=== PATIENT | female | born 1965 | race Caucasian/White ===

== ENCOUNTER 2016-07-10 17:36 | Inpatient (IN) | payer BC ==
--- NOTE | ~2016-07-10 | PN ---
Unit #: [id number] #: [id number] Patient: SHILPA OVALLE [id number] [facility] [address] [place] [address] [id number] MR#: [id number] NAME: SHILPA OVALLE ROOM: P204 Age: Sex: F Admission Date: 07/11/2016 : 1965 Attending Physician: Luis Molina M.D. Admitting Physician: Luis Molina M.D. Primary Care Physician: Primary Care Physician Raegan CARRION NOTES DATE 07/17/2016 DISCUSSION Ms. Ovalle is a 50-year-old white female . She was laying in her bed in acute distress and discomfort and vomit tray in front of her and was puking and was stating that her detox protocol fell off and she has not been feeling good and has been getting nausea, vomiting and stomach ache and pains and cramps and has not been able to get up and function or be active to the daily living discomfort and it has been recommended extending the detox protocol at least another day. Will monitor her response and make further adjustments as needed. Dictated by... Garfield Zhu/tia TD: 07/18/2016 09:03 JOB #: [id number] [facility] PROGRESS NOTES Page 1 of 1 X Luis Molina MD X PROGRESS NOTE
--- NOTE | ~2016-07-10 | PN ---
Unit #: [id number] #: [id number] Patient: SHILPA LLAMAS [id number] [facility] [address] [place] [address] [id number] MR#: [id number] NAME: SHILPA LLAMAS. ROOM: P204 Age: 50 Sex: F Admission Date: 07/11/2016 : 1965 Attending Physician: Luis Molina M.D. Admitting Physician: Garfield Zhu PROGRESS NOTES DATE OF SERVICE: 07/18/2016 SUBJECTIVE Ms. Llamas is a 50-year-old white female with substance abuse and mood disorder, who was seen today and chart was reviewed, and case was discussed with the staff. Meanwhile, she has been anxious, withdrawn, and rather seclusive to herself, and appears to be doing better than yesterday. Meanwhile, she has been taking the medications and tolerating them fairly well. MENTAL STATUS EXAMINATION Middle-aged white female, who was casually dressed with fair personal hygiene, appears to be in no acute distress or discomfort. She was awake and alert with intact orientation. Her mood was anxious with congruent affect. She denies any suicidal or homicidal ideations. Her insight and judgement remain slightly impaired. TREATMENT PLAN 1. We will continue her on her current treatment protocol. We will monitor her response to medications and make further adjustments as needed. 2. We will continue to follow up. Dictated by... Garfield Zhu/iwona TD: 07/19/2016 16:04 JOB #: [id number] [facility] PROGRESS NOTES Page 1 of 1 X Luis Molina MD PROGRESS NOTE
--- NOTE | ~2016-07-10 | PN ---
Unit #: [id number] #: [id number] Patient: SHILPA OVALLE [id number] [facility] [address] [place] [address] [id number] I MR#: [id number] NAME: SHILPA OVALLE. ROOM: P204 Age: 50 Sex: F Admission Date: 07/11/2016 : 1965 Attending Physician: Luis Molina M.D. Admitting Physician: Luis Molina M.D. Primary Care Physician: Primary Care Physician Raegan CARRION NOTES DATE OF SERVICE: 07/15/2016 SUBJECTIVE Ms. Ovalle is a 14-year-old white female, who was seen today and chart was reviewed and the case was discussed with the staff, who reports the patient has been anxious, restless, and appears to be still detoxing as she has been uncomfortable and in distress and discomfort and seclusive to herself, and unable to do activities of daily living. Meanwhile, she has been compliant with the treatment recommendations and has been taking the medications and tolerating them fairly well with no reported side effects. MENTAL STATUS EXAMINATION Middle-aged white female, who was casually dressed with fair personal hygiene, appears to be in no acute distress or discomfort. She was awake and alert on interaction with intact orientation. Her mood was anxious with a congruent affect. She denies any suicidal or homicidal ideations and also denies any auditory or visual hallucinations. Her insight and judgment remain slightly impaired. TREATMENT PLAN 1. We will continue her on her current treatment protocol and the detox medications. We will monitor response and make further adjustments as needed. 2. We will continue to follow up. Dictated by... Garfield Zhu/iwona TD: 07/15/2016 13:06 JOB #: [id number] Unit #: [id number] #: [id number] Patient: SHILPA OVALLEJOHNNY CARRION NOTES Page 1 of 1 X Luis Molina MD PROGRESS NOTE
--- NOTE | ~2016-07-10 | PN ---
Unit #: [id number] #: [id number] Patient: SHILPA OVALLE [id number] [facility] [address] [place] [address] [id number] I MR#: [id number] NAME: SHILPA OVALLE. ROOM: P204 Age: 50 Sex: F Admission Date: 07/11/2016 : 1965 Attending Physician: Luis Molina M.D. Admitting Physician: Luis Molina M.D. Primary Care Physician: Primary Care Physician Raegan GODWIN PROGRESS NOTES DATE 07/19/2016 DISCUSSION Ms. Ovalle is a 50-year-old white female who was seen today and chart was reviewed and case was discussed with the staff. She has been anxious, withdrawn and seclusive to herself. Meanwhile, she has been cooperative with treatment recommendations as she has been taking the medications and tolerating them fairly well with no reported side effects. MENTAL STATUS EXAMINATION Middle-aged white female who was casually dressed with fair personal hygiene, appears to be in no acute distress or discomfort. She was awake and alert on interaction with intact orientation. Her mood was anxious with congruent affect. She denies any suicidal or homicidal ideations. Her insight and judgement remains slightly impaired. TREATMENT PLAN 1. We will continue her on her current medications and treatment protocol. We will monitor her response to the medication and make further adjustments as needed. 2. We will continue to follow up. Dictated by... Garfield Zhu/tia TD: 07/20/2016 16:54 JOB #: [id number] Unit #: [id number] #: [id number] Patient: SHILPA OVALLE [facility] PROGRESS NOTES Page 1 of 1 X Luis Molina MD X PROGRESS NOTE
--- NOTE | ~2016-07-10 | PA ---
Unit #: [id number] #: [id number] Patient: SHILPA LLAMAS [id number] [facility] [address] [place] [address] [id number] MR#: [id number] NAME: SHILPA LLAMAS. ROOM: P204 Age: 50 Sex: M Admission Date: 07/11/2016 : 1965 Date of Assessment: Attending Physician: Luis Molina M.D. Admitting Physician: Luis Molina M.D. Primary Care Physician: Primary Care Physician No PSYCHIATRIC ASSESSMENT IDENTIFICATION DATA The patient is a 50-year-old, , white female, who is a resident of [place], [place] and was transferred to us from [facility] in [place], [place]. CHIEF COMPLAINT Need help with pain management. HISTORY OF PRESENT ILLNESS The patient is a 50-year-old white female, who reports that she was prescribed fentanyl through [facility] and the patient's sister stated that she was discharged from [facility] for overdose and she is retired from the police department in [place]. The patient's sister stated that she lives at home with her seven years ago and her mother 3 years ago. The patient stated that there is a conflict with family related to her drug addiction. The patient does report increasing depression, anxiety, disturbed sleep, psychomotor retardation, feelings of hopelessness and helplessness, but denies any suicidal ideations, intent, or plan. SUBSTANCE ABUSE HISTORY The patient reports history of opioid dependance and has benzodiazepine abuse and currently opioids, appear to be her drug of choice. She reports that she has been abusing Percocets and is also getting fentanyl and currently, has been going through some acute detox. PAST PSYCHIATRIC HISTORY The patient has a history of inpatient chemical dependency and had psychiatric treatment at [facility] as well as at the [facility] in [place], [place] and review of the medical records indicate that currently she is not active in any treatment program, is not seeing a psychiatrist, and is not taking any psychotropic medications. PAST MEDICAL HISTORY The patient's medical history is significant for chronic pain. ALLERGIES Penicillin, sulfas, and tramadol. PERSONAL AND SOCIAL HISTORY A 50-year-old white female, who reports that she is and lives alone and has poor social support system. Unit #: [id number] #: [id number] Patient: SHILPA LLAMAS MENTAL STATUS EXAMINATION Middle-aged white female, who is fairly dressed with fair personal hygiene, appears to be in no acute distress or discomfort. She was awake and alert on interaction with intact orientation to time, place, and person. Her mood was anxious and depressed with a congruent affect. Her speech was slow and restricted in content. Her thought processes were disorganized with some looseness of associations. She denies any suicidal or homicidal ideations. Denies any auditory or visual hallucinations. Her insight and judgment remain significantly impaired. DIAGNOSTIC IMPRESSION Psychiatric: Opioid dependence, moderate and acute withdrawals; opioid-induced mood disorder. Medical: Chronic pain. Stressors: Moderate psychosocial stressors. TREATMENT PLAN 1. The patient has presented with a history of mood disorder and substance abuse and has been decompensating and will need inpatient hospitalization for safety and stabilization. We will start her on detox protocol. We will closely monitor for any worsening withdrawal symptoms. 2. Supportive therapy was provided to the patient. ESTIMATED LENGTH OF STAY 5 to 7 days. ABILITY TO HELP SELF Limited. WILLINGNESS TO HELP SELF The patient appears to be willing to help self. STRENGTHS 1. Communicative. 2. Cooperative. PROBLEMS 1. Chronic dysphoric symptoms. 2. Chronic chemical dependency. 3. Poor social support system. DISCHARGE CRITERIA This will be contingent upon the patient's ability to show resolution of her depression and anxiety and ability to go through detox without having any significant withdrawal symptoms. Dictated by... Garfield Zhu/iwona TD: 07/11/2016 12:37 JOB #: [id number] Unit #: [id number] #: [id number] Patient: SHILPA LLAMAS PSYCHIATRIC ASSESSMENT Page 1 of 1 X Luis Molina MD PSYCHIATRIC ASSESSMENT
--- NOTE | ~2016-07-10 | PN ---
Unit #: [id number] #: [id number] Patient: SHILPA OVALLE [id number] [facility] [address] [place] [address] [id number] MR#: [id number] NAME: SHILPA OVALLE. ROOM: P204 Age: 50 Sex: F Admission Date: 07/11/2016 : 1965 Attending Physician: Luis Molina M.D. Admitting Physician: Luis Molina M.D. Primary Care Physician: Primary Care Physician Raegan CARRION NOTES DATE 07/20/2016 DISCUSSION Ms. Ovalle is a 57-year-old white female who was seen today and chart was reviewed and case was discussed with the staff. She has been anxious, withdrawn though appears to be doing much better and appears to coming out of the detox though has been complaining of some muscle aches and pains particularly in her neck and shoulder area. She has been taking medications and tolerating them fairly well. MENTAL STATUS EXAMINATION Middle-aged white female who was casually dressed with fair personal hygiene, appears to be in no acute distress or discomfort. She was awake and alert on interaction with intact orientation. Her mood was anxious with congruent affect. Her speech was slow and goal-directed. She denies any suicidal or homicidal ideations. Her insight and judgement remains slightly impaired. TREATMENT PLAN 1. We will continue her on her current medications and treatment protocol. We will monitor her response to the medication and make further adjustments as needed. 2. We will continue to follow up. Dictated by... Garfield Zhu/tia TD: 07/21/2016 21:34 JOB #: [id number] Unit #: [id number] #: [id number] Patient: SHILPA OVALLE [facility] PROGRESS NOTES Page 1 of 1 X Luis Molina MD X PROGRESS NOTE
--- NOTE | ~2016-07-10 | PN ---
Unit #: [id number] #: [id number] Patient: SHILPA LLAMAS [id number] [facility] [address] [place] [address] [id number] I MR#: [id number] NAME: SHILPA LLAMAS. ROOM: P204 Age: 50 Sex: F Admission Date: 07/11/2016 : 1965 Attending Physician: Luis Molina M.D. Admitting Physician: Luis Molina M.D. Primary Care Physician: Primary Care Physician Raegan GODWIN PROGRESS NOTES DATE OF SERVICE 07/12/2016 DISCUSSION Ms. Llamas is a 50-year-old white female with opioid dependence and mood disorder who was seen today. Chart was reviewed and case was discussed with the staff. She has been anxious, restless, and reports feeling worse today, appears to be going into detox. Meanwhile, she has been taking the medications and tolerating them fairly well. MENTAL STATUS EXAMINATION Middle-aged white female who is casually dressed with fair personal hygiene, appears to be in no acute distress or discomfort. The patient was awake and alert on interaction with intact orientation. Her mood is anxious with congruent affect. She denies any suicidal or homicidal ideations. Her insight and judgment remain slightly impaired. TREATMENT PLAN 1. We will continue her on her current treatment protocol. We will monitor her response to the medications and make further adjustments as needed. 2. We will continue to follow up. Dictated by... Luis Molina M.D. IAA/bzg TD: 07/13/2016 08:41 JOB #: [id number] [facility] PROGRESS NOTES Page 1 of 1 X Luis Molina MD X PROGRESS NOTE
--- NOTE | ~2016-07-10 | PN ---
Unit #: [id number] #: [id number] Patient: SHILPA OVALLE [id number] [facility] [address] [place] [address] [id number] MR#: [id number] NAME: SHILPA OVALLE. ROOM: P204 Age: 50 Sex: F Admission Date: 07/11/2016 : 1965 Attending Physician: Lius Molina M.D. Admitting Physician: Luis Molina M.D. Primary Care Physician: Primary Care Physician Raegan GODWIN PROGRESS NOTES DATE 07/14/2016 DISCUSSION Ms. Ovalle is a 50-year-old white female who was seen today and chart was reviewed and case was discussed with the staff. She has been anxious, withdrawn and rather seclusive to herself. Meanwhile, she has been cooperative with treatment recommendations as she has been taking the medications and tolerating them fairly well with no reported side effects. MENTAL STATUS EXAMINATION Middle-aged white female who was casually dressed with fair personal hygiene, appears to be in no acute distress or discomfort. She was awake and alert with impaired attention and concentration. Her mood was anxious with a congruent affect. Her speech was slow and goal-directed. She denies any suicidal or homicidal ideations. Also, denies any auditory or visual hallucinations. Her insight and judgement remains slightly impaired. TREATMENT PLAN 1. We will continue her on her current medications and treatment protocol. We will monitor her response to the medication and make further adjustments as needed. 2. We will continue to follow up. Dictated by... Garfield Zhu/tia TD: 07/14/2016 22:58 JOB #: [id number] Unit #: [id number] #: [id number] Patient: SHILPA OVALLE [facility] PROGRESS NOT[facility] Page 1 of 1 X Luis Molina MD PROGRESS NOTE
--- NOTE | ~2016-07-10 | PN ---
Unit #: [id number] #: [id number] Patient: SHILPA OVALLE [id number] [facility] [address] [place] [address] [id number] I MR#: [id number] NAME: SHLIPA OVALLE. ROOM: P204 Age: 50 Sex: F Admission Date: 07/11/2016 : 1965 Attending Physician: Luis Molina M.D. Admitting Physician: Luis Molina M.D. Primary Care Physician: Primary Care Physician Raegan GODWIN PROGRESS NOTES DATE July 13, 2016 DISCUSSION Ms. Ovalle is a 50-year-old white female, who was seen today and chart was reviewed and the case was discussed with the staff. The patient has been anxious, withdrawn, and rather seclusive to herself. Meanwhile, she has been cooperative with the treatment recommendations and she has been taking the medications and tolerating them fairly well with no reported side effects. MENTAL STATUS EXAMINATION Middle-aged white female, who was casually dressed with fair personal hygiene and appears to be in no acute distress or discomfort. She was awake and alert with impaired attention and concentration. Her mood was anxious with a congruent affect. The patient denies any suicidal or homicidal ideations. Her insight and judgment remain slightly impaired. TREATMENT PLAN 1. We will continue her on her current treatment protocol, and will monitor her response to the medications, and make further adjustments as needed. 2. We will continue to followup. Dictated by... Garfield Zhu/desmond TD: 07/14/2016 05:33 JOB #: [id number] Unit #: [id number] #: [id number] Patient: SHILPA OVALLE [facility] PROGRESS NOTES Page 1 of 1 X Luis Molina MD X PROGRESS NOTE
--- NOTE | ~2016-07-10 | HP ---
Unit #: [id number] #: [id number] Patient: SHILPA LLAMAS [id number] [place] [address] [id number] MR#: [id number] NAME: SHILPA LLAMAS. ROOM: P201 Age: 50 Sex: M Admission Date: 07/11/2016 : 1965 Attending Physician: Luis Molina M.D. Admitting Physician: Luis Molina M.D. Primary Care Physician: Primary Care Physician No HISTORY AND PHYSICAL HISTORY OF PRESENT ILLNESS Shilpa is a 50-year-old female admitted on 07/11/[address] [place] [address] after an overdose. PAST MEDICAL HISTORY None. PAST SURGICAL HISTORY Right rotator cuff surgical repair x2. SOCIAL HISTORY No tobacco or alcohol use. The patient denies illegal drug use. 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 She is currently and living with her 19-year-old son. FAMILY HISTORY Noncontributory. REVIEW OF SYSTEMS CONSTITUTIONAL: No fever or chills. HEENT: Denies any sore throat, ear pain or runny nose. CARDIOVASCULAR: Denies chest pain, irregular heart rhythm or palpitations. CHEST: Denies shortness of breath or cough. No hemoptysis. GASTROINTESTINAL: Denies nausea, vomiting, diarrhea or chronic constipation. ENDOCRINE: Denies history of increased thirst or urination. No recent significant weight loss or gain. GENITOURINARY: Denies dysuria, frequency, or hematuria. SKIN: Denies any rashes. HEMATOLOGIC: Denies history of increased bleeding or bruising. MUSCULOSKELETAL: Denies any hot, swollen joints. No generalized muscle pain. NEUROLOGIC: Denies problems with vision or speech. No frequent, severe headaches. No numbness, tingling or weakness in any extremities. Denies loss of bladder or bowel control. CURRENT MEDICATIONS Cyclobenzaprine, fluoxetine, Fanapt, Fluticasone. ALLERGIES Prednisone, sulfa, and tramadol. PHYSICAL EXAMINATION Unit #: [id number] #: [id number] Patient: SHILPA LLAMAS GENERAL: Alert, oriented, no acute distress. VITAL SIGNS: Blood pressure 138/71, heart rate 91, temperature 98.6. Height: 5 feet 6. Weight: 145 pounds. SKIN: Warm, dry. No rashes or lesions, track mckinnon, cuts, etc. HEENT: Normocephalic. TMs not viewed. Oronasal passages clear. Conjunctivae clear. PERRLA. EOM is intact. NECK: No lymphadenopathy or thyromegaly. HEART: Regular rate and rhythm. No murmur, gallop, or rub. LUNGS: Clear to auscultation bilaterally. ABDOMEN: Soft, nontender without palpable masses or hepatosplenomegaly. : Not assessed. EXTREMITIES: No evidence of cyanosis, clubbing, or edema. Moves all extremities independently without obvious deficit. NEUROLOGICAL: Grossly within normal limits. Cranial Nerves: II: Visual lemus are intact. III, IV AND : Extraocular movements are intact. Pupils are equal, round and reactive to light. V: Facial sensation is grossly normal. VII: Facial movements and expression are normal. VIII: Auditory acuity grossly intact. IX, X: Uvula is midline. Phonation is normal. XI: Patient shrugs shoulders and turns head normally. XII: Tongue protrudes in the midline. Sensory and Motor Function: Sensory and motor sensation is grossly normal. Motor: moves all extremities well. Coordination: Gait is normal. Deep Tendon Reflexes: Intact. IMPRESSION Psychiatric admission. RECOMMENDATIONS PSYCHIATRIC: Per psychiatrist. MEDICAL: No contraindication to participating in this facility's activities. MEDICAL PROGNOSIS Good. MEDICAL CONDITION Stable. Dictated by... Radha Lara TD: 07/11/2016 13:58 JOB #: [id number] Unit #: [id number] #: [id number] Patient: SHILPA LLAMAS HISTORY AND PHYSICAL Page 1 of 1 X PERCY LI APRN HISTORY AND PHYSICAL
--- NOTE | ~2016-07-10 | DS ---
Unit #: [id number] #: [id number] Patient: SHILPA LLAMAS [id number] [facility] [address] [place] [address] [id number] MR#: [id number] NAME: SHILPA LLAMAS. ROOM: [facility] Age: 50 Sex: F Admission Date: 07/11/2016 : 1965 Discharge Date: 07/21/2016 Attending Physician: Luis Molina M.D. Primary Care Physician: Primary Care Physician No DISCHARGE SUMMARY IDENTIFYING DATA Ms. Llamas is a 50-year-old white female, who is a resident of [place], [place] and was transferred to us from [facility] in [place], [place]. DISCHARGE DIAGNOSES Psychiatric: Opioid dependence, moderate in acute withdrawals; opioid-induced mood disorder. Medical: Chronic pain. Stressors: Moderate psychosocial stressors. HISTORY OF PRESENT ILLNESS Please see initial psychiatric evaluation for details. PAST PSYCHIATRIC HISTORY Please see initial psychiatric evaluation for details. PAST MEDICAL HISTORY Please see initial psychiatric evaluation for details. HOSPITAL COURSE The [facility] and was oriented to the hospital environment. Routine p.r.n. medications were initiated, and she was started back on her home medications and opioid detox protocol was initiated. The patient was seen to have rather prolonged and complicated opioid detox with significant complications and as such, medications were maintained and we have to extend opioid detox as well. She was taking the medications regularly and was tolerating them fairly well and throughout the course, was seen to be rather polite and pleasant and cooperative with treatment recommendations and was able to slowly come out of the detox without any complications and with no further adjustments being made in her medications, it was decided that she will be discharged home and will continue treatment on an outpatient basis. DISCHARGE MEDICATIONS None. DISCHARGE CONDITION Stable. PROGNOSIS Fair. Unit #: [id number] #: [id number] Patient: SHILPA LLAMAS Dictated by... Garfield Zhu/modl TD: 07/21/2016 22:24 JOB #: [id number] DISCHARGE SUMMARY Page 1 of 1 X Luis Molina MD DISCHARGE SUMMARY
[2016-07-12 11:37] LABS: AMPHETAMINE NEG (NEG); BARBITURATES NEG (NEG); BENZODIAZEPINES POS (NEG); COCAINE NEG (NEG); MARIJUANA NEG (NEG); OPIATES NEG (NEG); TRICYCLIC ANTIDEPRESSANTS POS (NEG); U METHADONE NEG (NEG)
== END 2016-07-21 12:56 | disposition home or self-care (01) | DRG 897 ==
LOC: P2S 07-11 02:42 → EDSEX 07-11 02:42 → P2S 07-11 05:17
PROVIDERS: Psychiatry & Neurology Psychiatry
PROC: HZ2ZZZZ Detoxification Services for Substance Abuse Treatment (ICD-10-PCS; principal; 2016-07-11)
DX: F11.23 Opioid dependence with withdrawal (principal); F11.24 Opioid dependence with opioid-induced mood disorder; F41.9 Anxiety disorder, unspecified; Z88.0 Allergy status to penicillin; Z88.2 Allergy status to sulfonamides; Z88.8 Allergy status to other drugs, medicaments and biological substances
CPT/HCPCS: 80307